=== PATIENT | male | born 1950 | race Native Hawaiian/Other Pacific Islander ===

== ENCOUNTER 2020-09-22 16:53 | Outpatient (CLI) | payer OTHER ==
[2020-09-22 17:12] LABS: PLATELET COUNT 227 K/uL (142-355)
[2020-09-22 17:47] LABS: POTASSIUM 4.9 mmol/L (3.6-5.2)
== END 2020-09-22 19:18 | disposition home or self-care (01) ==
LOC: LAB 16:53
PROVIDERS: ATTEND Nurse Practitioner Family
DX: Z00.00 Encounter for general adult medical examination without abnormal findings (principal); K21.9 Gastro-esophageal reflux disease without esophagitis; F41.8 Other specified anxiety disorders; E03.8 Other specified hypothyroidism; Z79.899 Other long term (current) drug therapy; J45.909 Unspecified asthma, uncomplicated; R53.83 Other fatigue; F43.10 Post-traumatic stress disorder, unspecified
CPT/HCPCS: 80053; 80061; 82306; 82607; 83036; 84153; 84403; 84439; 84443; 85027